=== PATIENT | female | born 1980 | race African-American/Black ===

== ENCOUNTER 2018-07-15 12:56 | Emergency (ER) | payer MEDICAID, OTHER ==
[~2018-07-15] VITALS: Ht 144.8 cm; Wt 46.4 kg
[2018-07-15 13:05] VITALS: BP 105/69
--- NOTE | 2018-07-15 16:30 | NUR ---
PT BROUGHT TO CHAIR D AT 1627.C/O BL TOE PAIN S/P FALL 2 MONTHS AGO WORSE ON THE LT TOE WITH DISCOLORATION; HAS BEEN TAKING NORCO FOR ARTHRITIS WITH SOME RELIEF . DENIES N/V/D; SKIN IS PINK/WARM/DRY; AWAKE, ALERT; LUNGS CLEAR BL; HR EVEN AND REGULAR; PT DENIES ANY FEVER, CP, SOB, OR COUGH AT THIS TIME; PATIENT STATES PAIN OF 10/10 AT THIS TIME; VSS; PATIENT SITTING IN CHAIR D. ER MD MADE AWARE OF PT STATUS.
--- NOTE | 2018-07-15 18:34 | NUR ---
PT STEPPED OUT, PT STATED SHE NEEDS TO GO BACK TO HER CAR TO GET SOME PAIN PILLS. SHE WILL COME BACK. DR. GONZALEZ AND CHARGE NURSE ENOCH MADE AWARE.
[2018-07-15] MEDS: KETOROLAC 60 MG/2 ML VIAL IM ONE (19:22)
--- NOTE | 2018-07-15 19:22 | NUR ---
PT TO XRAY VIA W/C IN STABLE CONDITION
--- NOTE | 2018-07-15 20:18 | NUR ---
PT MOVED TO ER BED 7 LOLA BAILEY WITH PT CARE
[2018-07-15] MEDS: LORazepam 1 MG TAB PO ONE (20:32)
[2018-07-15] MEDS: MORPHINE SULFATE 2 MG/ML SYR IM ONE (20:34)
--- NOTE | 2018-07-15 20:37 | NUR ---
EMT at bedside
--- NOTE | 2018-07-15 20:37 | NUR ---
PT ORTHOPEDIC SHOES UPGRADED TO WOMENS SIZE LARGE BILATERAL
--- NOTE | 2018-07-15 20:40 | NUR ---
PT GIVEN INSTRUCTION ON SAFE AND PROPER USE OF CRUTCHES, INCLUDING SITTING TO STANDING, CLIMBING UP AND DOWN STAIRS, WELL SAFE DEMONSTRATION FOR 20 FEET. PT CRUTCHES FITTED TO 2 INCH SPACE BETWEEN ARMPIT AND BEGINNING OF CRUTCH, WITH HANDLES RESTING AT WRIST.
--- NOTE | 2018-07-15 20:45 | NUR ---
pt ambulated to restroom with crutches in no appearent distress
[2018-07-15 21:00] VITALS: BP 128/68
== END 2018-07-15 21:00 | disposition home or self-care (01) ==
LOC: MED 12:56
DX: S90.32XA Contusion of left foot, initial encounter (principal); S90.31XA Contusion of right foot, initial encounter; J45.909 Unspecified asthma, uncomplicated; W22.8XXA Striking against or struck by other objects, initial encounter; Y93.01 Activity, walking, marching and hiking; Y92.89 Other specified places as the place of occurrence of the external cause; Y99.8 Other external cause status
CPT/HCPCS: 73660; 96372; 99284; J1885; J2270